=== PATIENT | male | born 1990 ===

== ENCOUNTER 2018-03-23 19:31 | Emergency (ER) | payer OTHER ==
[2018-03-23 20:24] VITALS: RESP 18
[2018-03-23] MEDS ORDERED: Piperacillin/Tazobact 3.375 GM in Sodium Chloride 0.9% 100 ML IVPB STA (21:37)
--- NOTE | 2018-03-23 21:53 | ED PDOC ---
Upper Extremity Pain/Injury Time Seen by Provider: 03/23/18 21:24 Chief Complaint (Nursing): Abnormal Skin Integrity Chief Complaint (Provider): Pain to right forearm History Per: Patient History/Exam Limitations: no limitations Onset/Duration Of Symptoms: Days Current Symptoms Are (Timing): Still Present Quality: "Pain" Additional History Per: Patient Additional Complaint(s): 27yo male, states for the past 1 week, he has had a painful mass to his right forearm. He reports he was seen at [facility] earlier today for the same complaint and was prescribed antibiotics, which he has not taken. He reports coming to the ER as the swelling and redness around the wound has worsened. Patient states he has been taking Tylenol, with last dose yesterday and minimal relief. He otherwise denies any fever, chills and offers no additional complaints. Past Medical History Reviewed: Historical Data, Nursing Documentation, Vital Signs Vital Signs: Last Vital Signs Temp 98.2 F 03/23/18 20:22 Pulse 68 03/23/18 20:22 Resp 18 03/23/18 20:22 BP 114/60 03/23/18 20:22 Pulse Ox 99 03/23/18 20:22 - Medical History PMH: No Chronic Diseases - Surgical History Surgical History: No Surg Hx - Family History Family History: States: No Known Family Hx - Immunization History Hx Tetanus Toxoid Vaccination: Yes Hx Influenza Vaccination: No Hx Pneumococcal Vaccination: No - Home Medications Home Medications: Ambulatory Orders Medication Instructions Recorded Cephalexin [cephalexin] 500 mg PO Q6 #28 cap 03/23/18 Sulfamethoxazole/Trimethoprim 2 tab PO BID #28 tab 03/23/18 [Bactrim DS 800 mg-160 mg] - Allergies Allergies/Adverse Reactions: Allergies Allergy/AdvReac Type Severity Reaction Status Date / Time No Known Allergies Allergy Verified 03/23/18 20:22 Review of Systems ROS Statement: Except As Marked, All Systems Reviewed And Found Negative Constitutional: Negative for: Fever, Chills Musculoskeletal: Positive for: Other (painful mass to right forearm) Physical Exam - Reviewed Nursing Documentation Reviewed: Yes Vital Signs Reviewed: Yes - Physical Exam Appears: Positive for: Non-toxic, No Acute Distress Head Exam: Positive for: NORMAL INSPECTION Skin: Positive for: Normal Color Neck: Positive for: Supple Cardiovascular/Chest: Positive for: Regular Rate, Rhythm Respiratory: Positive for: Normal Breath Sounds Pulses-Radial (L): 2+ Pulses-Radial (R): 2+ Extremity: Positive for: Normal ROM (FROM bilateral upper extremities), Other (right forearm with a quarter sized, circular, indurated and non-fluctuant mass with moderate surrounding erythema. no streaking noted.) Neurologic/Psych: Positive for: Alert, Oriented. Negative for: Motor/Sensory Deficits - Laboratory Results Result Diagrams: 03/23/18 22:45 03/23/18 22:45 - ECG O2 Sat by Pulse Oximetry: 99 (RA) Pulse Ox Interpretation: Normal Medical Decision Making Medical Decision Making: Impression: Abscess to right forearm Plan: -- Patient informed the abscess is still firm and an I&D is not indicated at this time -- Labs -- Blood culture -- IV Vancomycin -- IV Zosyn -- IV toradol 2200 Under sterile conditions mass was aspirated but no purulent material was produced. DSD applied. Bleeding controlled. I&D not indicated at this time. Pt. agrees with plan and care. 2300 On re-evaluation, pt. informed of results. States pain has improved. Instructed to solely use newly prescribed meds as Bactrim DS that was initially prescribed was not for MRSA dosing. Advised to return to ED in 48 hours for wound check but is to return to ED immediately if symptoms worsen. Pt. and family verbalized correct understanding of necessary f/u. Scribe Attestation: Documented by Elizabeth Lennon, acting as a scribe for DAISY Malhotra. Provider Scribe Attestation: All medical record entries made by the Scribe were at my direction and personally dictated by me. I have reviewed the chart and agree that the record accurately reflects my personal performance of the history, physical exam, medical decision making, and the department course for this patient. I have also personally directed, reviewed, and agree with the discharge instructions and disposition. Disposition - Clinical Impression Clinical Impression: Cellulitis, Abscess - Patient ED Disposition Is Patient to be Admitted: No - Disposition Referrals: Adiel Anderson [Outside] Disposition: Routine/Home Disposition Time: 23:00 Condition: IMPROVED Additional Instructions: ONLY TAKE THE MEDICATIONS I PRESCRIBED TO YOU RETURN TO ED IN 48 HOURS FOR WOUND CHECK RETURN TO ED IMMEDIATELY IF FEVER DEVELOPS OR REDNESS/SWELLING WORSENS MEHDI JUÁREZ, thank you for letting us take care of you today. Your provider was Audra Wallace MD and you were treated for RT ARM PAIN. The emergency medical care you received today was directed at your acute symptoms. If you were prescribed any medication, please fill it and take as directed. It may take several days for your symptoms to resolve. Return to the Emergency Department if your symptoms worsen, do not improve, or if you have any other problems. Please contact your doctor or call one of the physicians/clinics you have been referred to that are listed on the Patient Visit Information form that is included in your discharge packet. Bring any paperwork you were given at [facility] with you along with any medications you are taking to your follow up visit. Our treatment cannot replace ongoing medical care by a primary care provider outside of the emergency department. Thank you for allowing the [facility] team to be part of your care today. If you had an X-Ray or CT scan: A Radiologist will review the ED reading if any change in treatment is needed we will contact you. If you had a blood, urine, or wound culture: It will take several days for the results, if any change in treatment is needed we will contact you. If you had an STI test: It will take 48 hours for the results. Please call after 1 week if you have not heard back. Prescriptions: Cephalexin [cephalexin] 500 mg PO Q6 #28 cap Sulfamethoxazole/Trimethoprim [Bactrim DS 800 mg-160 mg] 2 tab PO BID #28 tab Instructions: Boil (DC), Cellulitis (Skin Infection), Adult (DC) Forms: [employer] (Lithuanian)
[2018-03-23] MEDS ORDERED: Vancomycin 1 g Inj ONE (22:05)
[2018-03-23] MEDS ORDERED: Piperacillin/Tazobact 3.375 gm Inj IVPB ONE (22:05)
[2018-03-23 22:50] LABS: BASO % 0.3 % (0.0-2.0); EOS # 1.3 K/uL (0.0-0.7); EOS % 9.6 % (0.0-4.0); HEMOGLOBIN 15.2 g/dL (12.0-18.0); LYMPH # 1.7 K/uL (1.0-4.3); LYMPH % 13.1 % (20.0-40.0); MEAN CELL VOLUME 87.3 fl (80.0-94.0); MEAN CORPUSCULAR HEMOGLOBIN 29.2 pg (27.0-31.0); MEAN CORPUSCULAR HGB CONC 33.4 g/dL (33.0-37.0); MEAN PLATELET VOLUME 10.3 fl (7.2-11.7); MONO # 0.9 K/uL (0.0-0.8); NEUT # 9.3 K/uL (1.8-7.0); RBC 5.21 Mil/uL (4.40-5.90); RED CELL DISTRIBUTION WIDTH 13.8 % (11.5-14.5); WHITE BLOOD COUNT 13.3 K/uL (4.8-10.8)
[2018-03-23 23:04] LABS: ALB/GLOB RATIO 1.3 (1.0-2.1); ALBUMIN 4.3 g/dL (3.5-5.0); ALT/SGPT 27 U/L (21-72); AST/SGOT 25 U/L (17-59); BLOOD UREA NITROGEN 18 mg/dl (9-20); CALCIUM 9.6 mg/dL (8.4-10.2); GFR NON-AFRICAN AMERICAN > 60
[2018-03-23] MEDS ORDERED: Tdap Vaccine 0.5 ml Vial (10-64 yrs) IM ONE ×2 (23:20→23:23)
[2018-03-24 01:59] VITALS: BP 118/62; PULSE 66; TEMP 98; O2SAT 100
== END 2018-03-24 00:45 | disposition home or self-care (01) ==
LOC: H.ER 19:31
DX: L02.413 Cutaneous abscess of right upper limb (principal)
CPT/HCPCS: 10160; 80053; 85025; 87040; 90471; 90715; 96374; 99283; J1885; J2543

== ENCOUNTER 2018-03-24 22:48 | Observation (INO) | payer OTHER ==
[2018-03-25] MEDS ORDERED: Sodium Chloride 0.9% 1,000 ML IV STA (00:21)
--- NOTE | 2018-03-25 00:45 | ED PDOC ---
Upper Extremity Pain/Injury Time Seen by Provider: 03/25/18 00:10 Chief Complaint (Nursing): Abnormal Skin Integrity Chief Complaint (Provider): Abnormal Skin Integrity History Per: Patient History/Exam Limitations: no limitations Onset/Duration Of Symptoms: Days (x2) Additional Complaint(s): 27 y/o male with no significant PMHx returns to the ED for evaluation of abscess. Patient states he has been taking bactrim since the and received an IV dose of antibiotics yesterday in this ER. Patient states that all day today the redness has spread down his arm and up his arm to the mid bicep and mid forearm. Patient additionally reports that his arm has become stiff and hard to bend. Patient also states he had a fever today and took Tylenol at home. Past Medical History Reviewed: Historical Data, Nursing Documentation, Vital Signs Vital Signs: Last Vital Signs Temp 100.5 F H 03/24/18 23:19 Pulse 94 H 03/24/18 23:19 Resp 16 03/24/18 23:19 BP 115/71 03/24/18 23:19 Pulse Ox 100 03/24/18 23:19 - Medical History PMH: No Chronic Diseases - Surgical History Surgical History: No Surg Hx - Family History Family History: States: Unknown Family Hx - Immunization History Hx Tetanus Toxoid Vaccination: Yes Hx Influenza Vaccination: No Hx Pneumococcal Vaccination: No - Home Medications Home Medications: Ambulatory Orders Medication Instructions Recorded Cephalexin [cephalexin] 500 mg PO Q6 #28 cap 03/23/18 Sulfamethoxazole/Trimethoprim 2 tab PO BID #28 tab 03/23/18 [Bactrim DS 800 mg-160 mg] - Allergies Allergies/Adverse Reactions: Allergies Allergy/AdvReac Type Severity Reaction Status Date / Time No Known Allergies Allergy Verified 03/24/18 23:19 Review of Systems ROS Statement: Except As Marked, All Systems Reviewed And Found Negative Constitutional: Positive for: Fever Musculoskeletal: Positive for: Arm Pain Skin: Positive for: Other (Abscess) Physical Exam - Reviewed Nursing Documentation Reviewed: Yes Vital Signs Reviewed: Yes - Physical Exam Appears: Positive for: Well, Non-toxic, No Acute Distress Head Exam: Positive for: ATRAUMATIC, NORMAL INSPECTION, NORMOCEPHALIC Skin: Positive for: Normal Color, Warm, Dry Eye Exam: Positive for: EOMI, Normal appearance, PERRL Neck: Positive for: Normal, Painless ROM Cardiovascular/Chest: Positive for: Regular Rate, Rhythm. Negative for: Murmur Respiratory: Positive for: Normal Breath Sounds. Negative for: Wheezing Extremity: Positive for: Normal ROM (near full ROM of RUE), Swelling (general swelling to RUE including hand), Other (2 cm x 2 cm indurated abscess that is opened and draining on the dorsal surface of the forearm; abscess is surrounded by erythema from mid bicep to mid forearm) Neurologic/Psych: Positive for: Alert, Oriented. Negative for: Motor/Sensory Deficits - Laboratory Results Result Diagrams: 03/25/18 01:00 03/25/18 01:00 - ECG O2 Sat by Pulse Oximetry: 100 (RA) Pulse Ox Interpretation: Normal Medical Decision Making Medical Decision Making: Time: 00:21 A/P: 27 y/o male with worsening abscess and cellulitis that is failing outpatient treatment. * VBG * EKG * CMP * CBC w/ diff * CXR * IV Fluids * Acetaminophen 975 mg * Vancomycin * Blood culture * Urine culture * UA 230AM Surgery consulted for abscess Spoke with hospitalist who agrees to admit patient ------- Scribe Attestation: Documented by Murphy Topete acting as a scribe for Rizwan Waller MD. Provider Scribe Attestation: All medical record entries made by the Scribe were at my direction and personally dictated by me. I have reviewed the chart and agree that the record accurately reflects my personal performance of the history, physical exam, medical decision making, and the department course for this patient. I have also personally directed, reviewed, and agree with the discharge instructions and disposition. Disposition - Clinical Impression Clinical Impression: Abscess, Cellulitis - Patient ED Disposition Is Patient to be Admitted: Yes - Disposition Disposition Time: 02:30 Condition: FAIR Forms: [employer] (Kenyan)
[2018-03-25] MEDS ORDERED: Vancomycin 1 g Inj ONE (00:48)
[2018-03-25 01:14] LABS: BASO # 0.1 K/uL (0.0-0.2); BASO % 0.5 % (0.0-2.0); EOS # 0.7 K/uL (0.0-0.7); EOS % 6.2 % (0.0-4.0); HEMOGLOBIN 14.5 g/dL (12.0-18.0); LYMPH # 1.2 K/uL (1.0-4.3); LYMPH % 10.5 % (20.0-40.0); MEAN CELL VOLUME 86.5 fl (80.0-94.0); MEAN CORPUSCULAR HEMOGLOBIN 28.5 pg (27.0-31.0); MEAN PLATELET VOLUME 10.3 fl (7.2-11.7); MONO % 8.5 % (0.0-10.0); NEUT # 8.7 K/uL (1.8-7.0); NEUT % 74.3 % (50.0-75.0); RBC 5.1 Mil/uL (4.40-5.90); RED CELL DISTRIBUTION WIDTH 13.9 % (11.5-14.5); WHITE BLOOD COUNT 11.7 K/uL (4.8-10.8)
[2018-03-25 01:15] LABS: VENOUS BLOOD GAS BASE EXCESS -0.3 mmol/L (0.0-2.0); VENOUS BLOOD GAS PCO2 38 mmHg (40-60); VENOUS BLOOD GAS PO2 54 mm/Hg (30-55); VENOUS BLOOD PH 7.41 (7.32-7.43)
[2018-03-25 01:24] LABS: SQUAMOUS EPITHIAL < 1 /hpf (0-5); URINE BACTERIA RARE (<OCC); URINE BILIRUBIN NEGATIVE (NEGATIVE); URINE BLOOD NEGATIVE (NEGATIVE); URINE CLARITY CLEAR (Clear); URINE COLOR YELLOW (YELLOW); URINE GLUCOSE (UA) NEG (NEGATIVE); URINE LEUKOCYTE ESTERASE NEG Leu/uL (Negative); URINE PROTEIN NEGATIVE (NEGATIVE)
[2018-03-25 01:42] LABS: ALB/GLOB RATIO 1.3 (1.0-2.1); ALBUMIN 4.3 g/dL (3.5-5.0); ALT/SGPT 24 U/L (21-72); AST/SGOT 25 U/L (17-59); BLOOD UREA NITROGEN 12 mg/dl (9-20); CALCIUM 9.7 mg/dL (8.4-10.2); GFR NON-AFRICAN AMERICAN > 60
--- NOTE | 2018-03-25 03:20 | CP.PCM.HP ---
<Darrian Srinivasan - Last Filed: 03/25/18 04:06> History of Present Illness - History of Present Illness History of Present Illness: 27 y/o M with NO PMHx presented to ED due to fever and R forearm abscess. Pt explains noticing a pimple on R forearm 8 days ago, pruritic, pt scratched it intermittently, was prgressively increasing in size and a few days ago it became a small mass with white coloration. Pt was seen in the ED yesterday, was discharged ~2 AM with PO Cefazolin and PO Bactrim. However, pt felt feverish at 10pm last night, and noticed that redness around lesion extended significantly since yesterday, which prompted him to come to ED today. Pt has also been taking Motrin for fever and pain with no much improvement. --Pt reports similar episodes since childhood. Pt had a small abscess on R 3rd finger on July last year which did not improve with PO and topical antibiotics, and his mother had to rustically incise it in order for abscess to resolve. Pt reports a similar episode on R plantar foot area >1 year ago, for which PO antibiotics and topical antifungal were prescribed. Mother also incised and resolved after that. PMD: None NKDA Meds: None -PMHx: denied -PSHx: denied -FHx: NC. Parents are healthy. -SHx: Pt smokes 5 cigarettes per week, alcohol socially, and no recreational drug use. Pt works in construction, has 2 dogs at home but denies bites. At ED: --Vital signs WNL except for Temperature 100.5 F. --CBC showed mild leukocytosis, WBC 11.7-high. --CMP unremarkable, VBG showed NO lactic acidosis, U/A wnl. --EKG: normal, read by me. CXR unremarkable, read by me --PO Acetaminophen, IV NSS bolus x1 and IV Vancomycin were administered. --Pending Blood Cx, Urine Cx Present on Admission - Present on Admission Any Indicators Present on Admission: No Review of Systems - Constitutional Constitutional: Fever. absent: Night Sweats, Weight Loss - EENT Nose/Mouth/Throat: absent: Nasal Congestion, Odynophagia, Sore Throat, Facial Pain - Cardiovascular Cardiovascular: absent: Acrocyanosis, Chest Pain, Claudication, Dyspnea - Respiratory Respiratory: absent: Cough, Dyspnea, Hemoptysis, Wheezing - Gastrointestinal Gastrointestinal: absent: Abdominal Pain, Diarrhea, Hematemesis, Nausea, Vomiting - Genitourinary Genitourinary: absent: Dysuria, Flank Pain, Urinary Frequency Past Patient History - Infectious Disease Hx of Infectious Diseases: None - Past Social History Smoking Status: Light Smoker < 10 Cigarettes Daily - PSYCHIATRIC Hx Substance Use: No - SURGICAL HISTORY Hx Surgeries: No - ANESTHESIA Hx Anesthesia: No Hx Anesthesia Reactions: No Meds Allergies/Adverse Reactions: Allergies Allergy/AdvReac Type Severity Reaction Status Date / Time No Known Allergies Allergy Verified 03/24/18 23:19 Physical Exam - Constitutional Appears: No Acute Distress - Head Exam Head Exam: ATRAUMATIC, NORMAL INSPECTION - Eye Exam Eye Exam: EOMI, Normal appearance - ENT Exam ENT Exam: Mucous Membranes Moist - Neck Exam Neck exam: Positive for: Full Rom, Normal Inspection. Negative for: Meningismus - Respiratory Exam Respiratory Exam: NORMAL BREATHING PATTERN. absent: Rhonchi, Wheezes, Respiratory Distress - Cardiovascular Exam Cardiovascular Exam: REGULAR RHYTHM, +S1, +S2 - GI/Abdominal Exam GI & Abdominal Exam: Soft. absent: Distended, Rebound, Rigid, Tenderness - Extremities Exam Extremities exam: Positive for: full ROM. Negative for: calf tenderness, pedal edema - Neurological Exam Neurological exam: Alert, Oriented x3 - Skin Additional comments: Right Upper extremity: Presence of circular open wound of ~3-4cm diameter, abscess with white discoloration encompassing and underneath wound, tender erythematous induration extending from R elbow to passing mid forearm.. Results - Vital Signs Recent Vital Signs: Last Vital Signs Temp 100.5 F H 03/24/18 23:19 Pulse 94 H 03/24/18 23:19 Resp 16 03/24/18 23:19 BP 115/71 03/24/18 23:19 Pulse Ox 100 03/25/18 00:48 - Labs Result Diagrams: 03/25/18 01:00 03/25/18 01:00 Labs: Laboratory Results - last 24 hr 03/25/18 03/25/18 03/25/18 01:00 01:00 01:00 WBC 11.7 H RBC 5.10 Hgb 14.5 Hct 44.1 MCV 86.5 MCH 28.5 MCHC 33.0 RDW 13.9 Plt Count 146 MPV 10.3 Neut % (Auto) 74.3 Lymph % (Auto) 10.5 L Huntington % (Auto) 8.5 Eos % (Auto) 6.2 H Baso % (Auto) 0.5 Neut # (Auto) 8.7 H Lymph # (Auto) 1.2 Huntington # (Auto) 1.0 H Eos # (Auto) 0.7 Baso # (Auto) 0.1 pO2 VBG pH VBG pCO2 VBG HCO3 VBG Total CO2 VBG O2 Sat (Calc) VBG Base Excess VBG Potassium Glucose Lactate FiO2 Sodium 138 Potassium 3.9 Chloride 100 Carbon Dioxide 24 Anion Gap 18 BUN 12 Creatinine 0.9 Est GFR ( Amer) > 60 Est GFR (Non-Af Amer) > 60 Random Glucose 136 H Calcium 9.7 Total Bilirubin 1.7 H AST 25 ALT 24 Alkaline Phosphatase 81 Total Protein 7.7 Albumin 4.3 Globulin 3.4 Albumin/Globulin Ratio 1.3 Venous Blood Potassium Urine Color Yellow Urine Clarity Clear Urine pH 6.0 Ur Specific Blair 1.009 Urine Protein Negative Urine Glucose (UA) Neg Urine Ketones Negative Urine Blood Negative Urine Nitrate Negative Urine Bilirubin Negative Urine Urobilinogen 2.0 Ur Leukocyte Esterase Neg Urine RBC (Auto) 1 Urine Microscopic WBC < 1 Ur Squamous Epith Cells < 1 Urine Bacteria Rare 03/25/18 01:10 WBC RBC Hgb Hct MCV MCH MCHC RDW Plt Count MPV Neut % (Auto) Lymph % (Auto) Huntington % (Auto) Eos % (Auto) Baso % (Auto) Neut # (Auto) Lymph # (Auto) Huntington # (Auto) Eos # (Auto) Baso # (Auto) pO2 54 VBG pH 7.41 VBG pCO2 38 L VBG HCO3 24.4 VBG Total CO2 25.3 VBG O2 Sat (Calc) 92.3 H VBG Base Excess -0.3 L VBG Potassium 3.7 Glucose 132 H Lactate 1.2 FiO2 21.0 Sodium 134.0 Potassium Chloride 104.0 Carbon Dioxide Anion Gap BUN Creatinine Est GFR ( Amer) Est GFR (Non-Af Amer) Random Glucose Calcium Total Bilirubin AST ALT Alkaline Phosphatase Total Protein Albumin Globulin Albumin/Globulin Ratio Venous Blood Potassium 3.7 Urine Color Urine Clarity Urine pH Ur Specific Blair Urine Protein Urine Glucose (UA) Urine Ketones Urine Blood Urine Nitrate Urine Bilirubin Urine Urobilinogen Ur Leukocyte Esterase Urine RBC (Auto) Urine Microscopic WBC Ur Squamous Epith Cells Urine Bacteria Assessment & Plan - Assessment and Plan (Free Text) Assessment: 27 y/o M with NO PMHx was admitted for evaluation and management of R forearm abscess. PLAN: >Right forearm abscess --Mild fever (100.5F) at presentation, mild leukocytosis (WBC 11.7) --General Surgery consult, Dr Kitchen --Wound Culture ordered. --IV Vancomycin and IV Zosyn ordered --PO Tylenol for fever and PO Ibuprofen for pain. --Lesion was demarcated with a marker. --F/U AM labs, Blood Culture and Urine Culture. >Tobacco Use/Smoking Hx --Pt was educated on the risk and complications from tobacco use. --Pt was extensively counseled on smoking cessation and its benefits. --Pt reported understanding and will reflect and meditate on the decision for st opping tobacco. >DVT Prophylaxis --Low risk --SCD's PRN --Ambulation encouraged Case discussed with Dr Markel Srinivasan PGY-2 - Date & Time Date: 03/25/18 Time: 04:00 <Brian Jean Baptiste - Last Filed: 03/25/18 05:19> Results - Vital Signs Recent Vital Signs: Last Vital Signs Temp 98.3 F 03/25/18 03:51 Pulse 63 03/25/18 03:51 Resp 16 03/24/18 23:19 BP 109/65 03/25/18 03:51 Pulse Ox 100 03/25/18 04:06 - Labs Result Diagrams: 03/25/18 01:00 03/25/18 01:00 Labs: Laboratory Results - last 24 hr 03/25/18 03/25/18 03/25/18 01:00 01:00 01:00 WBC 11.7 H RBC 5.10 Hgb 14.5 Hct 44.1 MCV 86.5 MCH 28.5 MCHC 33.0 RDW 13.9 Plt Count 146 MPV 10.3 Neut % (Auto) 74.3 Lymph % (Auto) 10.5 L Huntington % (Auto) 8.5 Eos % (Auto) 6.2 H Baso % (Auto) 0.5 Neut # (Auto) 8.7 H Lymph # (Auto) 1.2 Huntington # (Auto) 1.0 H Eos # (Auto) 0.7 Baso # (Auto) 0.1 pO2 VBG pH VBG pCO2 VBG HCO3 VBG Total CO2 VBG O2 Sat (Calc) VBG Base Excess VBG Potassium Glucose Lactate FiO2 Sodium 138 Potassium 3.9 Chloride 100 Carbon Dioxide 24 Anion Gap 18 BUN 12 Creatinine 0.9 Est GFR ( Amer) > 60 Est GFR (Non-Af Amer) > 60 Random Glucose 136 H Calcium 9.7 Total Bilirubin 1.7 H AST 25 ALT 24 Alkaline Phosphatase 81 Total Protein 7.7 Albumin 4.3 Globulin 3.4 Albumin/Globulin Ratio 1.3 Venous Blood Potassium Urine Color Yellow Urine Clarity Clear Urine pH 6.0 Ur Specific Blair 1.009 Urine Protein Negative Urine Glucose (UA) Neg Urine Ketones Negative Urine Blood Negative Urine Nitrate Negative Urine Bilirubin Negative Urine Urobilinogen 2.0 Ur Leukocyte Esterase Neg Urine RBC (Auto) 1 Urine Microscopic WBC < 1 Ur Squamous Epith Cells < 1 Urine Bacteria Rare 03/25/18 03/25/18 01:10 04:15 WBC RBC Hgb Hct MCV MCH MCHC RDW Plt Count MPV Neut % (Auto) Lymph % (Auto) [place] % (Auto) Eos % (Auto) Baso % (Auto) Neut # (Auto) Lymph # (Auto) [place] # (Auto) Eos # (Auto) Baso # (Auto) pO2 54 48 VBG pH 7.41 7.35 VBG pCO2 38 L 41 VBG HCO3 24.4 22.2 VBG Total CO2 25.3 23.9 VBG O2 Sat (Calc) 92.3 H 87.2 H VBG Base Excess -0.3 L -2.9 L VBG Potassium 3.7 3.9 Glucose 132 H 103 Lactate 1.2 0.8 FiO2 21.0 21.0 Sodium 134.0 135.0 Potassium Chloride 104.0 107.0 Carbon Dioxide Anion Gap BUN Creatinine Est GFR ( Amer) Est GFR (Non-Af Amer) Random Glucose Calcium Total Bilirubin AST ALT Alkaline Phosphatase Total Protein Albumin Globulin Albumin/Globulin Ratio Venous Blood Potassium 3.7 3.9 Urine Color Urine Clarity Urine pH Ur Specific Blair Urine Protein Urine Glucose (UA) Urine Ketones Urine Blood Urine Nitrate Urine Bilirubin Urine Urobilinogen Ur Leukocyte Esterase Urine RBC (Auto) Urine Microscopic WBC Ur Squamous Epith Cells Urine Bacteria Attending/Attestation - Attestation I have personally seen and examined this patient.: Yes I have fully participated in the care of the patient.: Yes I have reviewed all pertinent clinical information: Yes Notes (Text): 03/25/18 05:11 Abscess of right upper extremity send blood and wound culture Gen Surgery consult for possible I+D Start pt on Vanco and Zosyn Send LA STAT Tobacco cessation counseling
[2018-03-25] MEDS ORDERED: Piperacillin/Tazobact 3.375 gm Inj IVPB ONE (03:53)
[2018-03-25] MEDS: Piperacillin/Tazobact 3.375 GM in Sodium Chloride 0.9% 100 ML IVPB SCH ×4 (04:11→21:14)
[2018-03-25 04:19] LABS: VENOUS BLOOD GAS BASE EXCESS -2.9 mmol/L (0.0-2.0); VENOUS BLOOD GAS PCO2 41 mmHg (40-60); VENOUS BLOOD GAS PO2 48 mm/Hg (30-55); VENOUS BLOOD PH 7.35 (7.32-7.43)
--- NOTE | 2018-03-25 05:52 | CP.PCM.CON ---
History of Present Illness - History of Present Illness History of Present Illness: SURGERY CONSULT NOTE FOR DR. STEEL Reason: right forearm swelling 27M presents to the ER for right arm pain and swelling. Patient began developing these symptoms approximately 8 days ago. It is located in the right forearm, and is is associated with erythema. Patient does admit to fevers, denies chills. On the posterior proximal forearm, an area of purulent drainage has developed. He denies pain in the right hand, denies numbness, tingling, denies decrease sensation, denies motor dysfunction. PMH: right 3rd finger abscess, right foot abscess PSH: denies (mother drained both abscesses in the past) Social: admits to prior use of tobacco, admits social alcohol use, denies illicit drug use Allergies: denies Past Patient History - Infectious Disease Hx of Infectious Diseases: None - Past Social History Smoking Status: Light Smoker < 10 Cigarettes Daily - PSYCHIATRIC Hx Substance Use: No - SURGICAL HISTORY Hx Surgeries: No - ANESTHESIA Hx Anesthesia: No Hx Anesthesia Reactions: No Meds Allergies/Adverse Reactions: Allergies Allergy/AdvReac Type Severity Reaction Status Date / Time No Known Allergies Allergy Verified 03/24/18 23:19 - Medications Medications: Current Medications Acetaminophen (Tylenol 325mg Tab) 650 mg PO Q4 PRN PRN Reason: Fever >100.4 F Vancomycin HCl 1 gm/ Sodium (Chloride) 250 mls @ 166.667 mls/hr IVPB Q12H EDGARD; Protocol Piperacillin Sod/Tazobactam (Sod 3.375 gm/ Sodium Chloride) 100 mls @ 100 mls/hr IVPB Q6 EDGARD; Protocol Last Admin: 03/25/18 04:11 Dose: 100 mls/hr Ibuprofen (Motrin Tab) 400 mg PO Q6 PRN PRN Reason: Pain, moderate (4-7) Physical Exam - Constitutional Appears: Non-toxic, Toxic - Eye Exam Eye Exam: EOMI, PERRL - Respiratory Exam Respiratory Exam: Clear to Auscultation Bilateral, NORMAL BREATHING PATTERN - Cardiovascular Exam Cardiovascular Exam: REGULAR RHYTHM, +S1, +S2 - GI/Abdominal Exam GI & Abdominal Exam: Soft. absent: Distended, Firm, Rebound, Rigid, Tenderness - Extremities Exam Additional comments: right forearm swelling, tenderness on palpation, erythema that spans the forearm, draining in the posterior proximal forearm - Neurological Exam Neurological exam: Alert, Oriented x3 - Psychiatric Exam Psychiatric exam: Normal Affect, Normal Mood - Skin Skin Exam: Dry, Intact, Warm Results - Vital Signs Recent Vital Signs: Last Vital Signs Temp 98.3 F 03/25/18 03:51 Pulse 63 03/25/18 03:51 Resp 16 03/24/18 23:19 BP 109/65 03/25/18 03:51 Pulse Ox 100 03/25/18 04:06 - Labs Result Diagrams: 03/25/18 05:45 03/25/18 01:00 Labs: Laboratory Results - last 24 hr 03/25/18 03/25/18 03/25/18 01:00 01:00 01:00 WBC 11.7 H RBC 5.10 Hgb 14.5 Hct 44.1 MCV 86.5 MCH 28.5 MCHC 33.0 RDW 13.9 Plt Count 146 MPV 10.3 Neut % (Auto) 74.3 Lymph % (Auto) 10.5 L [place] % (Auto) 8.5 Eos % (Auto) 6.2 H Baso % (Auto) 0.5 Neut # (Auto) 8.7 H Lymph # (Auto) 1.2 [place] # (Auto) 1.0 H Eos # (Auto) 0.7 Baso # (Auto) 0.1 pO2 VBG pH VBG pCO2 VBG HCO3 VBG Total CO2 VBG O2 Sat (Calc) VBG Base Excess VBG Potassium Glucose Lactate FiO2 Sodium 138 Potassium 3.9 Chloride 100 Carbon Dioxide 24 Anion Gap 18 BUN 12 Creatinine 0.9 Est GFR ( Amer) > 60 Est GFR (Non-Af Amer) > 60 Random Glucose 136 H Calcium 9.7 Total Bilirubin 1.7 H AST 25 ALT 24 Alkaline Phosphatase 81 Total Protein 7.7 Albumin 4.3 Globulin 3.4 Albumin/Globulin Ratio 1.3 Venous Blood Potassium Urine Color Yellow Urine Clarity Clear Urine pH 6.0 Ur Specific [place] 1.009 Urine Protein Negative Urine Glucose (UA) Neg Urine Ketones Negative Urine Blood Negative Urine Nitrate Negative Urine Bilirubin Negative Urine Urobilinogen 2.0 Ur Leukocyte Esterase Neg Urine RBC (Auto) 1 Urine Microscopic WBC < 1 Ur Squamous Epith Cells < 1 Urine Bacteria Rare 03/25/18 03/25/18 01:10 04:15 WBC RBC Hgb Hct MCV MCH MCHC RDW Plt Count MPV Neut % (Auto) Lymph % (Auto) [place] % (Auto) Eos % (Auto) Baso % (Auto) Neut # (Auto) Lymph # (Auto) [place] # (Auto) Eos # (Auto) Baso # (Auto) pO2 54 48 VBG pH 7.41 7.35 VBG pCO2 38 L 41 VBG HCO3 24.4 22.2 VBG Total CO2 25.3 23.9 VBG O2 Sat (Calc) 92.3 H 87.2 H VBG Base Excess -0.3 L -2.9 L VBG Potassium 3.7 3.9 Glucose 132 H 103 Lactate 1.2 0.8 FiO2 21.0 21.0 Sodium 134.0 135.0 Potassium Chloride 104.0 107.0 Carbon Dioxide Anion Gap BUN Creatinine Est GFR ( Amer) Est GFR (Non-Af Amer) Random Glucose Calcium Total Bilirubin AST ALT Alkaline Phosphatase Total Protein Albumin Globulin Albumin/Globulin Ratio Venous Blood Potassium 3.7 3.9 Urine Color Urine Clarity Urine pH Ur Specific [place] Urine Protein Urine Glucose (UA) Urine Ketones Urine Blood Urine Nitrate Urine Bilirubin Urine Urobilinogen Ur Leukocyte Esterase Urine RBC (Auto) Urine Microscopic WBC Ur Squamous Epith Cells Urine Bacteria Assessment & Plan - Assessment and Plan (Free Text) Assessment: 27M with right forearm cellulitis with small area of spontaneously draining abscess Plan: - IVF - Warm compresses to forearm multiple times daily - IV antibiotics - Monitor area of erythema - Monitor vitals - Monitor WBC Further recs discuss with Dr. Imtiaz Rankin, PGY3
[2018-03-25 06:13] LABS: HEMOGLOBIN 13.6 g/dL (12.0-18.0); MEAN CELL VOLUME 87.1 fl (80.0-94.0); MEAN CORPUSCULAR HEMOGLOBIN 28.9 pg (27.0-31.0); MEAN CORPUSCULAR HGB CONC 33.2 g/dL (33.0-37.0); RBC 4.71 Mil/uL (4.40-5.90); RED CELL DISTRIBUTION WIDTH 13.6 % (11.5-14.5); WHITE BLOOD COUNT 9.7 K/uL (4.8-10.8)
--- NOTE | 2018-03-25 08:12 | RAD ---
Date of service: 03/25/2018 HISTORY: Sepsis Patient COMPARISON: No prior. FINDINGS: LUNGS: No active pulmonary disease. PLEURA: No significant pleural effusion identified, no pneumothorax apparent. CARDIOVASCULAR: No aortic atherosclerotic calcification present. Normal cardiac size. No pulmonary vascular congestion. OSSEOUS STRUCTURES: No significant abnormalities. VISUALIZED UPPER ABDOMEN: Normal. OTHER FINDINGS: None. IMPRESSION: No active disease.
--- NOTE | 2018-03-25 11:08 | CARD ---
APPROVED REPORT Date of service: 03/25/2018 EKG Measurement Heart [id number] <Conclusion> Normal sinus rhythm Normal ECG
--- NOTE | 2018-03-25 13:36 | CP.PCM.PN ---
Subjective - Date & Time of Evaluation Date of Evaluation: 03/25/18 Time of Evaluation: 08:00 - Subjective Subjective: PT seen and examined this morning. Reports that right arm pain and swelling has improved. Yellow purulent drainage noted coming from center of abscess. Discussed plan with pt. As per surgery, will apply warm compresses and continue IV ABx. Objective - Vital Signs/Intake and Output Vital Signs (last 24 hours): Temp Pulse Resp BP Pulse Ox 98 F 86 18 113/63 100 03/25/18 09:36 03/25/18 08:59 03/25/18 08:59 03/25/18 08:59 03/25/18 08:59 - Medications Medications: Current Medications Acetaminophen (Tylenol 325mg Tab) 650 mg PO Q4 PRN PRN Reason: Fever >100.4 F Vancomycin HCl 1 gm/ Sodium (Chloride) 250 mls @ 166.667 mls/hr IVPB Q12H EDGARD; Protocol Last Admin: 03/25/18 12:25 Dose: 166.667 mls/hr Piperacillin Sod/Tazobactam (Sod 3.375 gm/ Sodium Chloride) 100 mls @ 100 mls/hr IVPB Q6 EDGARD; Protocol Last Admin: 03/25/18 11:10 Dose: 100 mls/hr Ibuprofen (Motrin Tab) 400 mg PO Q6 PRN PRN Reason: Pain, moderate (4-7) Last Admin: 03/25/18 09:36 Dose: 400 mg - Labs Labs: 03/25/18 05:45 03/25/18 01:00 - Constitutional Appears: No Acute Distress - Head Exam Head Exam: NORMAL INSPECTION - Eye Exam Eye Exam: Normal appearance - ENT Exam ENT Exam: Mucous Membranes Moist - Respiratory Exam Respiratory Exam: Clear to Ausculation Bilateral. absent: Rales, Wheezes - Cardiovascular Exam Cardiovascular Exam: REGULAR RHYTHM, +S1, +S2 - GI/Abdominal Exam GI & Abdominal Exam: Normal Bowel Sounds - Extremities Exam Additional comments: Right lateral forearm- 3-4 cm swelling with erythematous base, central lesion with yellow purulent drainage Assessment and Plan - Assessment and Plan (Free Text) Assessment: 27 y/o M with NO PMHx was admitted for evaluation and management of R forearm abscess. PLAN: >Right forearm abscess --Clinically improving --Afebrile in last 24 hours, Leukocytosis resolved --General Surgery consult, Dr Kitchen- Warm Compress TID --Wound Culture ordered --C/W IV Vancomycin and IV Zosyn --PO Tylenol for fever and PO Ibuprofen for pain. --Lesion was demarcated with a marker. --F/U AM labs, Blood Culture and Urine Culture. >Tobacco Use/Smoking Hx --Pt was educated on the risk and complications from tobacco use. --Pt was extensively counseled on smoking cessation and its benefits. --Pt reported understanding and will reflect and meditate on the decision for stopping tobacco. >DVT Prophylaxis --Low risk --SCD's PRN --Ambulation encouraged Discussed with Dr. York
[2018-03-26] MEDS: Piperacillin/Tazobact 3.375 GM in Sodium Chloride 0.9% 100 ML IVPB SCH ×3 (04:44→16:49)
--- NOTE | 2018-03-26 07:50 | CP.PCM.PN ---
Subjective - Date & Time of Evaluation Date of Evaluation: 03/26/18 Time of Evaluation: 07:48 - Subjective Subjective: SURGERY NOTE FOR DR. STEEL 27M seen and examined at bedside. No acute events overnight. Patient continues to complain of pain in the right forearm, states the swelling is about the same. Much of pain no localizing to adjacent to area of purulent drainage. Denies fevers or chills. Objective - Vital Signs/Intake and Output Vital Signs (last 24 hours): Temp Pulse Resp BP Pulse Ox 97.8 F 66 20 111/61 98 03/26/18 00:08 03/26/18 00:08 03/26/18 00:08 03/26/18 00:08 03/26/18 00:08 - Medications Medications: Current Medications Acetaminophen (Tylenol 325mg Tab) 650 mg PO Q4 PRN PRN Reason: Fever >100.4 F Vancomycin HCl 1 gm/ Sodium (Chloride) 250 mls @ 166.667 mls/hr IVPB Q12H EDGARD; Protocol Last Admin: 03/26/18 00:26 Dose: 166.667 mls/hr Piperacillin Sod/Tazobactam (Sod 3.375 gm/ Sodium Chloride) 100 mls @ 100 mls/hr IVPB Q6 EDGARD; Protocol Last Admin: 03/26/18 04:44 Dose: 100 mls/hr Ibuprofen (Motrin Tab) 400 mg PO Q6 PRN PRN Reason: Pain, moderate (4-7) Last Admin: 03/25/18 23:10 Dose: 400 mg - Labs Labs: 03/25/18 05:45 03/25/18 01:00 - Constitutional Appears: Non-toxic, No Acute Distress - Respiratory Exam Respiratory Exam: Clear to Ausculation Bilateral, NORMAL BREATHING PATTERN - Cardiovascular Exam Cardiovascular Exam: REGULAR RHYTHM, +S1, +S2 - GI/Abdominal Exam GI & Abdominal Exam: Soft. absent: Distended, Firm, Guarding, Rigid, Tenderness, Rebound - Extremities Exam Additional comments: right forearm swelling, tenderness on palpation - Neurological Exam Neurological Exam: Alert, Awake - Skin Skin Exam: Dry, Intact, Normal Color, Warm Assessment and Plan - Assessment and Plan (Free Text) Assessment: 27M with right forearm cellulitis/abscess, draining Plan: - Continue IV antibiotics - Consider further Incision and drainage - Monitor erythema - Wound culture Further recs discuss with Dr. Imtiaz Rankin, PGY3
[2018-03-26 09:45] LABS: BASO % 0.4 % (0.0-2.0); EOS # 1.1 K/uL (0.0-0.7); EOS % 15.1 % (0.0-4.0); HEMOGLOBIN 14.4 g/dL (12.0-18.0); LYMPH # 1.5 K/uL (1.0-4.3); LYMPH % 20.7 % (20.0-40.0); MEAN CELL VOLUME 86.6 fl (80.0-94.0); MEAN CORPUSCULAR HEMOGLOBIN 29.3 pg (27.0-31.0); MEAN CORPUSCULAR HGB CONC 33.8 g/dL (33.0-37.0); MEAN PLATELET VOLUME 9.8 fl (7.2-11.7); MONO # 0.5 K/uL (0.0-0.8); MONO % 7.3 % (0.0-10.0); NEUT # 4.2 K/uL (1.8-7.0); NEUT % 56.5 % (50.0-75.0); RBC 4.92 Mil/uL (4.40-5.90); RED CELL DISTRIBUTION WIDTH 13.6 % (11.5-14.5); WHITE BLOOD COUNT 7.5 K/uL (4.8-10.8)
--- NOTE | 2018-03-26 13:04 | CP.PCM.PN ---
Subjective - Date & Time of Evaluation Date of Evaluation: 03/26/18 Time of Evaluation: 08:00 - Subjective Subjective: PT seen and examined this morning. Reports that swelling and arm pain has improved. Denies fever/chills. Moving all digits, no numbness/tingling. Objective - Vital Signs/Intake and Output Vital Signs (last 24 hours): Temp Pulse Resp BP Pulse Ox 97.8 F 54 L 20 113/69 98 03/26/18 08:27 03/26/18 08:27 03/26/18 08:27 03/26/18 08:27 03/26/18 08:27 - Medications Medications: Current Medications Acetaminophen (Tylenol 325mg Tab) 650 mg PO Q4 PRN PRN Reason: Fever >100.4 F Vancomycin HCl 1 gm/ Sodium (Chloride) 250 mls @ 166.667 mls/hr IVPB Q12H EDGARD; Protocol Last Admin: 03/26/18 12:25 Dose: 166.667 mls/hr Piperacillin Sod/Tazobactam (Sod 3.375 gm/ Sodium Chloride) 100 mls @ 100 mls/hr IVPB Q6 EDGARD; Protocol Last Admin: 03/26/18 09:27 Dose: 100 mls/hr Ibuprofen (Motrin Tab) 400 mg PO Q6 PRN PRN Reason: Pain, moderate (4-7) Last Admin: 03/26/18 10:10 Dose: 400 mg - Labs Labs: 03/26/18 08:40 03/25/18 01:00 - Constitutional Appears: No Acute Distress - Head Exam Head Exam: NORMAL INSPECTION - Eye Exam Eye Exam: Normal appearance - ENT Exam ENT Exam: Mucous Membranes Moist - Neck Exam Neck Exam: Full ROM - Respiratory Exam Respiratory Exam: Clear to Ausculation Bilateral. absent: Rales, Wheezes - Cardiovascular Exam Cardiovascular Exam: REGULAR RHYTHM, +S1, +S2. absent: Murmur - GI/Abdominal Exam GI & Abdominal Exam: Soft, Normal Bowel Sounds - Extremities Exam Extremities Exam: Normal Capillary Refill, Normal Inspection Additional comments: RIght lateral forarm- moderate swelling, redness, and tenderness improved from day before. Central ulceration, draining serosangionuous discharge. Good radial pulse, sensation and motor of all digits in tact. - Neurological Exam Neurological Exam: Alert, Awake, Oriented x3 - Psychiatric Exam Psychiatric exam: Normal Affect - Skin Skin Exam: Normal Color Assessment and Plan - Assessment and Plan (Free Text) Assessment: 27 y/o M with NO PMHx was admitted for evaluation and management of R forearm abscess. PLAN: >Right forearm abscess --Clinically improving --Afebrile in last 48 hours, Leukocytosis resolved --General Surgery consult, Dr Kitchen- Warm Compress TID, --Wound Culture-GPC --C/W IV Vancomycin and IV Zosyn --PO Tylenol for fever and PO Ibuprofen for pain. --F/U AM labs, Blood Culture and Urine Culture. >Tobacco Use/Smoking Hx --Pt was educated on the risk and complications from tobacco use. --Pt was extensively counseled on smoking cessation and its benefits. --Pt reported understanding and will reflect and meditate on the decision for stopping tobacco. >DVT Prophylaxis --Low risk --SCD's PRN --Ambulation encouraged Discussed with Dr. York
[2018-03-26] MEDS ORDERED: Lidocaine 1% Inj (20ml) IJ ONE (13:59)
--- NOTE | 2018-03-26 14:34 | CP.PCM.PN ---
Subjective - Date & Time of Evaluation Date of Evaluation: 03/26/18 Time of Evaluation: 14:32 - Subjective Subjective: PRE-OP DIAGNOSIS: right forearm abscess POST-OP DIAGNOSIS: right forearm abscess PROCEDURE: incision and drainage of right forearm abscess Commercial Driver: TJ [email or web address] PROCEDURE: A timeout protocol was performed prior to initiating the procedure. The area was prepared and draped in the usual, sterile manner. The site was anesthetized with 1% lidocaine with epinephrine. A linear incision along the local skin lines was made and the purulent/sanguinous material expressed. The abscess was explored thoroughly and sequestered pockets were opened. Bleeding controlled with packing. Packin inch plain packing Followup: The patient tolerated the procedure well without complications. Objective - Vital Signs/Intake and Output Vital Signs (last 24 hours): Temp Pulse Resp BP Pulse Ox 97.8 F 54 L 20 113/69 98 03/26/18 08:27 03/26/18 08:27 03/26/18 08:27 03/26/18 08:27 03/26/18 08:27 - Medications Medications: Current Medications Acetaminophen (Tylenol 325mg Tab) 650 mg PO Q4 PRN PRN Reason: Fever >100.4 F Vancomycin HCl 1 gm/ Sodium (Chloride) 250 mls @ 166.667 mls/hr IVPB Q12H EDGARD; Protocol Last Admin: 03/26/18 12:25 Dose: 166.667 mls/hr Piperacillin Sod/Tazobactam (Sod 3.375 gm/ Sodium Chloride) 100 mls @ 100 mls/hr IVPB Q6 EDGARD; Protocol Last Admin: 03/26/18 09:27 Dose: 100 mls/hr Ibuprofen (Motrin Tab) 400 mg PO Q6 PRN PRN Reason: Pain, moderate (4-7) Last Admin: 03/26/18 10:10 Dose: 400 mg - Labs Labs: 03/26/18 08:40 03/25/18 01:00
[2018-03-26 16:03] VITALS: BP 119/65; PULSE 60; RESP 18; TEMP 98; O2SAT 96
--- NOTE | 2018-03-26 16:39 | CP.PCM.DIS ---
Provider - Provider Date of Admission: 03/25/18 02:35 Attending physician: Brian Jean Baptiste MD Consults: 03/25/18 02:33 Surgery [General Surgery Consult] Stat Comment: Consulting Provider: Robb Benavidez Consulting Physician: Robb Benavidez Reason for Consult: abscess, cellulitis Time Spent in preparation of Discharge (in minutes): 35 Diagnosis - Discharge Diagnosis (1) Cellulitis Status: Resolved (2) Abscess Status: Resolved Hospital Course - Lab Results Lab Results: Micro Results 03/25/18 01:00 Urine Random Urine Culture - Final No Growth (<1,000 CFU/ML) 03/25/18 08:42 Abscess - Arm-Right Gram Stain - Final 03/25/18 08:42 Abscess - Arm-Right Wound Culture - Preliminary Gram Positive Cocci 03/25/18 01:30 Blood Blood Culture - Preliminary NO GROWTH AFTER 24 HOURS 03/25/18 01:00 Blood Blood Culture - Preliminary NO GROWTH AFTER 24 HOURS Most Recent Lab Values WBC 7.5 K/uL (4.8-10.8) 03/26/18 08:40 RBC 4.92 Mil/uL (4.40-5.90) 03/26/18 08:40 Hgb 14.4 g/dL (12.0-18.0) 03/26/18 08:40 Hct 42.6 % (35.0-51.0) 03/26/18 08:40 MCV 86.6 fl (80.0-94.0) 03/26/18 08:40 MCH 29.3 pg (27.0-31.0) 03/26/18 08:40 MCHC 33.8 g/dL (33.0-37.0) 03/26/18 08:40 RDW 13.6 % (11.5-14.5) 03/26/18 08:40 Plt Count 155 K/uL (130-400) 03/26/18 08:40 MPV 9.8 fl (7.2-11.7) 03/26/18 08:40 Neut % (Auto) 56.5 % (50.0-75.0) 03/26/18 08:40 Lymph % (Auto) 20.7 % (20.0-40.0) 03/26/18 08:40 [place] % (Auto) 7.3 % (0.0-10.0) 03/26/18 08:40 Eos % (Auto) 15.1 % (0.0-4.0) H 03/26/18 08:40 Baso % (Auto) 0.4 % (0.0-2.0) 03/26/18 08:40 Neut # (Auto) 4.2 K/uL (1.8-7.0) 03/26/18 08:40 Lymph # (Auto) 1.5 K/uL (1.0-4.3) 03/26/18 08:40 [place] # (Auto) 0.5 K/uL (0.0-0.8) 03/26/18 08:40 Eos # (Auto) 1.1 K/uL (0.0-0.7) H 03/26/18 08:40 Baso # (Auto) 0.0 K/uL (0.0-0.2) 03/26/18 08:40 pO2 48 mm/Hg (30-55) 03/25/18 04:15 VBG pH 7.35 (7.32-7.43) 03/25/18 04:15 VBG pCO2 41 mmHg (40-60) 03/25/18 04:15 VBG HCO3 22.2 mmol/L 03/25/18 04:15 VBG Total CO2 23.9 mmol/L (22-28) 03/25/18 04:15 VBG O2 Sat (Calc) 87.2 % (40-65) H 03/25/18 04:15 VBG Base Excess -2.9 mmol/L (0.0-2.0) L 03/25/18 04:15 VBG Potassium 3.9 mmol/L (3.6-5.2) 03/25/18 04:15 Sodium 135.0 mmol/L (132-148) 03/25/18 04:15 Chloride 107.0 mmol/L (98-107) 03/25/18 04:15 Glucose 103 mg/dL (75-110) 03/25/18 04:15 Lactate 0.8 mmol/L (0.7-2.1) 03/25/18 04:15 FiO2 21.0 % 03/25/18 04:15 Sodium 138 mmol/l (132-148) 03/25/18 01:00 Potassium 3.9 MMOL/L (3.6-5.0) 03/25/18 01:00 Chloride 100 mmol/L (98-107) 03/25/18 01:00 Carbon Dioxide 24 mmol/L (22-30) 03/25/18 01:00 Anion Gap 18 (10-20) 03/25/18 01:00 BUN 12 mg/dl (9-20) 03/25/18 01:00 Creatinine 0.9 mg/dl (0.8-1.5) 03/25/18 01:00 Est GFR ( Amer) > 60 03/25/18 01:00 Est GFR (Non-Af Amer) > 60 03/25/18 01:00 Random Glucose 136 mg/dL (75-110) H 03/25/18 01:00 Hemoglobin A1c 5.6 % (4.2-6.5) 03/25/18 05:45 Calcium 9.7 mg/dL (8.4-10.2) 03/25/18 01:00 Total Bilirubin 1.7 mg/dl (0.2-1.3) H 03/25/18 01:00 AST 25 U/L (17-59) 03/25/18 01:00 ALT 24 U/L (21-72) 03/25/18 01:00 Alkaline Phosphatase 81 U/L (38-126) 03/25/18 01:00 Total Protein 7.7 G/DL (6.3-8.2) 03/25/18 01:00 Albumin 4.3 g/dL (3.5-5.0) 03/25/18 01:00 Globulin 3.4 gm/dL (2.2-3.9) 03/25/18 01:00 Albumin/Globulin Ratio 1.3 (1.0-2.1) 03/25/18 01:00 Venous Blood Potassium 3.9 mmol/L (3.6-5.2) 03/25/18 04:15 Urine Color Yellow (YELLOW) 03/25/18 01:00 Urine Clarity Clear (Clear) 03/25/18 01:00 Urine pH 6.0 (5.0-8.0) 03/25/18 01:00 Ur Specific [place] 1.009 (1.003-1.030) 03/25/18 01:00 Urine Protein Negative mg/dL (NEGATIVE) 03/25/18 01:00 Urine Glucose (UA) Neg mg/dL (NEGATIVE) 03/25/18 01:00 Urine Ketones Negative mg/dL (NEGATIVE) 03/25/18 01:00 Urine Blood Negative (NEGATIVE) 03/25/18 01:00 Urine Nitrate Negative (NEGATIVE) 03/25/18 01:00 Urine Bilirubin Negative (NEGATIVE) 03/25/18 01:00 Urine Urobilinogen 2.0 mg/dL (0.2-1.0) 03/25/18 01:00 Ur Leukocyte Esterase Neg [place]/uL (Negative) 03/25/18 01:00 Urine RBC (Auto) 1 /hpf (0-3) 03/25/18 01:00 Urine Microscopic WBC < 1 /hpf (0-5) 03/25/18 01:00 Ur Squamous Epith Cells < 1 /hpf (0-5) 03/25/18 01:00 Urine Bacteria Rare (<OCC) 03/25/18 01:00 - Hospital Course Hospital Course: 27 y/o M with NO PMHx was admitted for evaluation and management of R forearm abscess. PLAN: >Right forearm abscess --Clinically improved after 2 days of Vancomycin --Afebrile in last 48 hours, Leukocytosis resolved --General Surgery consult, Dr Benavidez- I&D today and packed. F/u in 1 week --Wound Culture-GPC, BCx negative --C/W Oral Bsctrim and Keflex from prior ED visit; pt states he will complete course of tx --Will follow up on 02/27 at 10:00am, appt with Dr. yung for wound check and re- packing >Tobacco Use/Smoking Hx --Pt was educated on the risk and complications from tobacco use. --Pt was extensively counseled on smoking cessation and its benefits. --Pt reported understanding and will reflect and meditate on the decision for stopping tobacco. Discussed with Dr. York Discharge Exam - Head Exam Head Exam: NORMAL INSPECTION - Eye Exam Eye Exam: Normal appearance - ENT Exam ENT Exam: Mucous Membranes Moist - Respiratory Exam Respiratory Exam: Clear to PA & Lateral. absent: Rales, Wheezes - Cardiovascular Exam Cardiovascular Exam: REGULAR RHYTHM, +S1, +S2 - GI/Abdominal Exam GI & Abdominal Exam: Normal Bowel Sounds, Soft. absent: Tenderness - Extremities Exam Extremities exam: normal inspection Additional comments: Right forearm swealling, redness with active serosang discharge, packing in place. Good radial pulse, sensory and motor in tact - Neurological Exam Neurological exam: Alert, Oriented x3 - Psychiatric Exam Psychiatric exam: Normal Affect - Skin Skin Exam: Normal Color Discharge Plan - Follow Up Plan Condition: FAIR Disposition: HOME/ ROUTINE Instructions: Cellulitis (Skin Infection), Adult (DC), Wound Incision and Drainage (DC), Abscess (GEN) Additional Instructions: follow up with dr benavidez 1 week Referrals: [facility] [Outside] Robb Benavidez MD [Staff Provider] -
[2018-03-26] MEDS ORDERED: Influenza Vaccine (5 YR UP)/PF 60 MCG/0.5 ML SYR IM ONE (17:15)
[2018-03-26] MEDS ORDERED: Influenza Vaccine 60 mcg/0.5 mL SYR (4YR UP) IM ONE (17:30)
== END 2018-03-26 18:21 | disposition home or self-care (01) ==
LOC: H.ER 22:48 → H.ERHOLD 03-25 02:35 → H.MEDSURG1 03-25 09:08
PROVIDERS: ADMIT Hospitalist; ATTEND Hospitalist
DX: L02.413 Cutaneous abscess of right upper limb (principal); L03.113 Cellulitis of right upper limb; B95.61 Methicillin susceptible Staphylococcus aureus infection as the cause of diseases classified elsewhere; F17.210 Nicotine dependence, cigarettes, uncomplicated; Z23 Encounter for immunization
CPT/HCPCS: 10060; 36415; 71045; 80053; 81003; 82803; 83036; 85025; 85027; 87040; 87070; 87086; 90471; 90674; 93005; 99285; G0378; J1170; J2543; J7030